=== PATIENT | female | born 1990 | race Two or more races ===

== ENCOUNTER → 2017-03-28 | Outpatient (REF) | payer OTHER | LOC: M SFHCLERA 10:56 | PROVIDERS: ATTEND Nurse Practitioner Family | DX: L29.8 Other pruritus (principal) ==

== ENCOUNTER → 2017-08-23 | Outpatient (REF) | payer OTHER | LOC: M LAB REF 15:22 | DX: J11.1 Influenza due to unidentified influenza virus with other respiratory manifestations (principal); J02.9 Acute pharyngitis, unspecified ==

== ENCOUNTER 2017-11-27 13:29 | Inpatient (IN) | payer OTHER ==
[2017-11-27] MEDS: LACTATED RINGER'S 1000 ML IV (15:38)
[2017-11-27] MEDS: AMPICILLIN SOD 2 GM in APPROPRIATE DILUENT 20 ML IV (15:48)
[2017-11-27 15:49] LABS: HEMATOCRIT 36.3 % (36.0-47.0); HEMOGLOBIN 12.7 g/dl (12.0-15.5); MEAN CORPUSCULAR HEMOGLOBIN 31.9 pg (27.0-33.0); MEAN CORPUSCULAR VOLUME 91.2 fl (80.0-96.0); PLATELET COUNT, AUTOMATED 159 10^3/uL (150-450); RED BLOOD COUNT 3.98 10^6/uL (4.00-5.40); RED CELL DISTRIBUTION WIDTH 12.5 % (11.5-14.5)
[2017-11-27] MEDS: LR 1,000 ML IV (16:32)
[2017-11-27] MEDS: BUTORPHANOL 2 MG/ML INJ (J0595) IV (17:03)
[2017-11-27] MEDS ORDERED: FENTANYL 2MCG/ML ROPIVACAINE 0.2% IN 0.9% NACL 200ML IVBAG As Ordered (19:10)
[2017-11-27] MEDS ORDERED: OXYTOCIN 30 UNITS IN 0.9% NaCl 500ML IV BAG (J2590) As Ordered (19:38)
[2017-11-27 19:59] LABS: CORD GAS ABE V -8.7; CORD GAS HCO3 V 18.1 MEQ/L; CORD GAS O2 SAT V 51.1 %; CORD GAS PCO2 V 42.4 mmHg; CORD GAS PH V 7.249 UNITS; CORD GAS SBC V 16.6 MEQ/L; CORD GAS TCO2 V 19.4 MEQ/L
[2017-11-27 20:00] LABS: CORD GAS ABE A -9.2; CORD GAS HCO3 A 18.9 MEQ/L; CORD GAS O2 SAT A 27.7 %; CORD GAS PCO2 A 48.9 mmHg; CORD GAS PH A 7.204 UNITS; CORD GAS PO2 A 16.2 mmHg; CORD GAS SBC A 15.8 MEQ/L; CORD GAS TCO2 A 20.4 MEQ/L
[2017-11-27] MEDS ORDERED: IBUPROFEN 800 MG TAB As Ordered (21:17)
[2017-11-27] MEDS: IBUPROFEN 800 MG TAB PO (21:40)
[2017-11-27] MEDS ORDERED: RHOGAM 300 MCG (1500 IU) INJ (J2790) IM (21:45)
[2017-11-27] MEDS ORDERED: DOCUSATE SODIUM 100 MG CAP PO (21:45)
[2017-11-27] MEDS ORDERED: MEASLES,MUMPS,RUBELLA VACCINE INJ (MMR-II) (90707) SC (21:45)
[2017-11-27] MEDS: OXYTOCIN DRIP 30 UNITS in APPROPRIATE DILUENT 1 EA IV (22:05)
[2017-11-27] MEDS: LIDOCAINE 1% MDV 20ML VIAL INFIL (22:05)
[2017-11-27 22:14] LABS: ALBUMIN 2.8 GM/DL (3.2-5.2); ALBUMIN/GLOBULIN RATIO 0.82 (1.00-1.93); ALKALINE PHOSPHATASE 158 U/L (45-117); ALT/SGPT 18 U/L (12-78); ANION GAP 13 MEQ/L (8-16); AST/SGOT 23 U/L (7-37); BILIRUBIN,TOTAL 0.4 MG/DL (0.2-1.0); BLOOD UREA NITROGEN 7 MG/DL (7-18); CALCIUM LEVEL 8.9 MG/DL (8.5-10.1); CARBON DIOXIDE LEVEL 20 MEQ/L (21-32); CHLORIDE LEVEL 107 MEQ/L (98-107); CREATININE FOR GFR 0.69 MG/DL (0.55-1.30); GLOMERULAR FILTRATION RATE > 60.0 (>60); GLUCOSE, FASTING 78 MG/DL (70-100); POTASSIUM SERUM 4.1 MEQ/L (3.5-5.1); SODIUM LEVEL 140 MEQ/L (136-145); TOTAL PROTEIN 6.2 GM/DL (6.4-8.2)
[2017-11-27] MEDS: AMPICILLIN SOD 1 GM in APPROPRIATE DILUENT 10 ML IV (22:25)
[2017-11-28] MEDS: ACETAMINOPHEN 500 MG TAB PO ×2 (03:35→16:59)
[2017-11-28] MEDS: DIBUCAINE 1% OINTMENT 30GM TOP (03:36)
[2017-11-28] MEDS: PRENATAL VITAMINS CHEWABLE TABLET PO (09:13)
[2017-11-28] MEDS: IBUPROFEN 800 MG TAB PO ×2 (09:14→18:07)
[2017-11-29] MEDS: PRENATAL VITAMINS CHEWABLE TABLET PO (07:45)
[2017-11-29] MEDS: IBUPROFEN 800 MG TAB PO (07:46)
== END 2017-11-29 11:40 | disposition home or self-care (01) | DRG 775 ==
LOC: M LDO 13:29 → M LDI 14:43 → M OBS 23:10
PROVIDERS: Obstetrics & Gynecology
PROC: 10D07Z6 Extraction of Products of Conception, Vacuum, Via Natural or Artificial Opening (ICD-10-PCS; principal; 2017-11-27)
PROC: 0KQM0ZZ Repair Perineum Muscle, Open Approach (ICD-10-PCS; 2017-11-27)
DX: O76 Abnormality in fetal heart rate and rhythm complicating labor and delivery (principal); Z37.0 Single live birth; Z3A.39 39 weeks gestation of pregnancy; O99.820 Streptococcus B carrier state complicating pregnancy; O70.1 Second degree perineal laceration during delivery; O77.0 Labor and delivery complicated by meconium in amniotic fluid

== ENCOUNTER 2018-10-21 09:32 | Emergency (ER) | payer OTHER ==
[~2018-10-21] VITALS: Ht 162.6 cm; Wt 92.3 kg
[~2018-10-21 09:32] MED LIST: COLA100C5 PO; DIBU1OIN TOP; IBUP-1114 PO; MAPA500T2 PO; PRENTAB9 PO; TUMS500C PO
[2018-10-21] MEDS ORDERED: ATOM25CA PO (09:41)
[2018-10-21] MEDS ORDERED: SERT-141 PO (09:41)
[2018-10-21] MEDS ORDERED: NS 1,000 ML IV ONE (10:00)
[2018-10-21] MEDS ORDERED: ONDANSETRON 4MG/2ML VIAL (J2405) IV ONE (10:00)
[2018-10-21 10:23] LABS: BASO % 0.3 % (0.0-1.0); EOS # 0.1 10^3/uL (0.0-0.50); EOS % 1.2 % (0.0-3.0); HEMATOCRIT 43.6 % (36.0-47.0); HEMOGLOBIN 15.1 g/dl (12.0-15.5); LYMPH # 1.2 10^3/uL (1.5-6.5); LYMPH % 20.1 % (24.0-44.0); MEAN CORPUSCULAR HEMOGLOBIN 31.6 pg (27.0-33.0); MEAN CORPUSCULAR HGB CONC 34.6 g/dl (32.0-36.5); MEAN CORPUSCULAR VOLUME 91.2 fl (80.0-96.0); MONO # 0.5 10^3/uL (0.0-0.8); MONO % 9.1 % (0.0-5.0); NEUTROPHILS # 4.1 10^3/uL (1.8-7.7); NEUTROPHILS % 69.1 % (36.0-66.0); PLATELET COUNT, AUTOMATED 205 10^3/uL (150-450); RED BLOOD COUNT 4.78 10^6/uL (4.00-5.40); WHITE BLOOD COUNT 5.9 10^3/uL (4.0-10.0)
[2018-10-21 10:44] LABS: HCG, SERUM QUALITATIVE NEGATIVE (NEGATIVE)
[2018-10-21 10:47] LABS: ALBUMIN 4.2 GM/DL (3.2-5.2); ALT/SGPT 19 U/L (12-78); AMYLASE 55 U/L (25-115); BILIRUBIN,DIRECT 0.2 MG/DL (0.0-0.2); BILIRUBIN,TOTAL 0.7 MG/DL (0.2-1.0); BLOOD UREA NITROGEN 14 MG/DL (7-18); CALCIUM LEVEL 8.8 MG/DL (8.5-10.1); CARBON DIOXIDE LEVEL 27 MEQ/L (21-32); CHLORIDE LEVEL 107 MEQ/L (98-107); CREATININE FOR GFR 0.82 MG/DL (0.55-1.30); GLOMERULAR FILTRATION RATE > 60.0 (>60); GLUCOSE, FASTING 86 MG/DL (70-100); LIPASE 121 U/L (73-393); SODIUM LEVEL 141 MEQ/L (136-145); TOTAL PROTEIN 7.5 GM/DL (6.4-8.2)
[2018-10-21] MEDS ORDERED: OMEP40CA2 PO (11:43)
[2018-10-21 11:58] VITALS: BP 104/59
--- NOTE | 2018-10-22 09:29 | REP ---
Right upper quadrant sonography: History: Upper abdominal pain, nausea and vomiting. Evaluate for biliary disease. Comparison study: No comparison study. Findings: Scanning through the right upper quadrant of the abdomen demonstrates a normal sized, thin-walled gallbladder without evidence of stone or polyp. Common bile duct is normal measuring 0.5 cm in greatest diameter. No focal liver lesion is seen. Liver size is normal. No pancreatic abnormality is observed. No right renal abnormality is seen. There is no evidence of ascites. The right kidney measures 11.4 x 4.1 x 4.0 cm. Impression: Negative right upper quadrant sonography. Electronically Signed by Tim Huggins MD 10/21/2018 10:52 A
== END 2018-10-21 12:07 | disposition home or self-care (01) ==
LOC: M ED 09:32
DX: R10.9 Unspecified abdominal pain (principal); R11.10 Vomiting, unspecified; R19.7 Diarrhea, unspecified; Z83.79 Family history of other diseases of the digestive system; Z79.899 Other long term (current) drug therapy
CPT/HCPCS: 76705; 80048; 80076; 81001; 82150; 83690; 84703; 85025; 96374; 99284; J2405

== ENCOUNTER → 2018-10-26 | Outpatient (REF) | payer OTHER ==
[~2018-10-26] MED LIST changes: +ATOM25CA PO; +OMEP40CA2 PO; +SERT-141 PO
== END ==
LOC: M SFHCLERA 12:02
PROVIDERS: ATTEND Physician Assistant
DX: N89.8 Other specified noninflammatory disorders of vagina (principal)
CPT/HCPCS: 81002; 81025; 87070; 87086; G0463

== ENCOUNTER 2023-02-27 22:41 | Outpatient (CLI) | payer OTHER ==
[~2023-02-27] VITALS: Ht 162.6 cm; Wt 115.2 kg
[~2023-02-27 22:41] MED LIST changes: -OMEP40CA2 PO; +OMEP40CA4 PO
[2023-02-27 22:53] VITALS: BP 122/60
[2023-02-27] MEDS ORDERED: FOLI0.4T5 PO (23:03)
[2023-02-27] MEDS ORDERED: PRENTAB9 PO (23:03)
[2023-02-27] MEDS ORDERED: GNP250TA9 PO (23:03)
[2023-02-27] MEDS ORDERED: HOME MED LIST COMPLETE! XX SCH (23:05)
== END 2023-02-28 00:07 | disposition home or self-care (01) ==
LOC: M LDO 22:41
PROVIDERS: ATTEND Obstetrics & Gynecology
DX: O36.8130 Decreased fetal movements, third trimester, not applicable or unspecified (principal); Z3A.28 28 weeks gestation of pregnancy
CPT/HCPCS: 59025; 76815; G0463